=== PATIENT | female | born 1970 | race African-American/Black ===

== ENCOUNTER → 2017-02-09 | Outpatient (CLI) | payer OTHER ==
--- NOTE | ~2017-02-09 | CR61 ---
[facility] A Service of [facility] & [facility] RADIOLOGY TEXT RESULTS PATIENT: SERGE ELLER LOCATION: [facility] : [birth year] UNIT #: [id number] AGE: [address]: Diann Massey MD SEX: F ORDER DR: [id number] [facility] [address] [place], [place] [address] [id number] O MR#: [id number] Acc #: [id number] NAME: SERGE ELLER : 1970 SEX: F STUDY DATE/TIME: 02/09/2017 10:58 UNIT: [facility] ROOM: STUDY DESCRIPTION: CR Cervical Spine Min 5 Views Attending Physician: Diann Massey M.D. Referring Physician: Diann Massey M.D. Ordering Physician: Diann Massey M.D. Primary Care Physician: Diann Massey M.D. MEDICAL IMAGING REPORT This report is preliminary unless electronic signature is present EXAM Cervical spine series, 02/09/17 COMPARISON STUDIES None HISTORY Pain in the left arm for 1 year FINDINGS Five views of cervical spine were obtained. The lateral views in neutral, flexion and extension, frontal, open mouth C1-2 views were obtained. There is no acute fracture or subluxation. There is prominence along the anterior and posterior aspect of the inferior endplate of C5. There is loss of C5-6 disk space suggestive of disk disease. Also seen is well corticated 3.5 mm opacity along the anterior aspect of C6-7 disk which could represent anterior longitudinal ligament calcification or fractured spur. No obvious deformity of the adjacent vertebral bodies are seen. Pre and paravertebral soft tissues do not demonstrate any significant abnormality. IMPRESSION 1. Degenerative changes are noted at C5-6 with loss of disk height and endplate osteophytes. Depending on the clinical need, it could be further evaluated with MRI or CT C spine. 2. There is a 3.5 mm well corticated triangular opacity noted along the anterior aspect of C6-C7 disk closer to the anteroinferior endplate of C6. It is probably ossification of the anterior longitudinal ligament. An old fractured spur is in the differential consideration. There are no old studies for comparison. [facility] A Service of [facility] RADIOLOGY TEXT RESULTS PATIENT: SERGE ELLER LOCATION: [facility] : [birth year] UNIT #: [id number] AGE: [address]: Diann Massey MD SEX: F ORDER DR: Dictated by... Scot Bentley M.D. THIS IS AN ELECTRONICALLY VERIFIED REPORT Scot Bentley M.D. at 02/11/2017 8:45 AM CPR/toshia TD: 02/09/2017 17:55 JOB #: [id number] MEDICAL IMAGING REPORT Page 1 of 1 COPY
== END | disposition home or self-care (01) ==
LOC: CRAD 10:42
DX: M54.12 Radiculopathy, cervical region (principal); M47.812 Spondylosis without myelopathy or radiculopathy, cervical region; M25.78 Osteophyte, vertebrae
CPT/HCPCS: 72050